=== PATIENT | male | born 1990 | race Caucasian/White ===

== ENCOUNTER → 2024-12-04 11:23 | Outpatient (REF) | payer OTHER, SELFPAY ==
[2024-12-06 12:26] LABS: Quantiferon Mitogen minus NIL 9.99 IU/mL; Quantiferon NIL 0.01 IU/mL; Quantiferon TB Gold Plus Negative (Negative)
== END ==
LOC: OHS 11:23
PROVIDERS: ATTENDING PHYSICIAN Nurse Practitioner Family
DX: Z23 Encounter for immunization (principal)
CPT/HCPCS: 36415; 86480